=== PATIENT | female | born 1950 | race Caucasian/White ===

== ENCOUNTER 2022-02-15 11:45 | Inpatient (IN) | payer MEDICARE, OTHER ==
[~2022-02-15] VITALS: Ht 160 cm; Wt 44.3 kg
[2022-02-15 12:28] LABS: HEMOGLOBIN 16.7 gm/dl (12.3-15.3); RED BLOOD COUNT 4.95 M/UL (4.00-5.10); WHITE BLOOD COUNT 12.5 K/UL (4.5-11.0)
[2022-02-15 13:03] LABS: BUN/CREATININE RATIO 33 (0-10)
[2022-02-16 01:15] LABS: HEMOGLOBIN 15.1 gm/dl (12.3-15.3); RED BLOOD COUNT 4.54 M/UL (4.00-5.10); WHITE BLOOD COUNT 9.8 K/UL (4.5-11.0)
[2022-02-16 01:38] LABS: BUN/CREATININE RATIO 34 (0-10)
[2022-02-16] MEDS ORDERED: TRAZODONE HCL100 MG PO (10:52)
[2022-02-16] MEDS ORDERED: ADVAIR 250-501 EACH INH (10:52)
[2022-02-16] MEDS ORDERED: CLONAZEPAM1 MG PO (10:52)
[2022-02-16] MEDS ORDERED: MELOXICAM15 MG PO (10:53)
[2022-02-16] MEDS ORDERED: AMLODIPINE BES2.5 MG PO (10:54)
[2022-02-16] MEDS ORDERED: BACLOFEN10 MG PO (10:54)
[2022-02-16] MEDS ORDERED: LOSARTAN POTASS50 MG PO (10:55)
[2022-02-16] MEDS ORDERED: POTASSIUM CHLO10 ME1 PO (10:56)
[2022-02-16] MEDS ORDERED: PILOCARPINE HCL5 MG PO (10:56)
--- NOTE | 2022-02-16 17:33 | NUR ---
PER TELEMETRY PATIENT HAD A 6 BEAT RUN OF SVT. CALLED DR CHAVEZ AND INFORMED HIM SHE WAS NOT IN ANY DISTRESS. PATIENT WAS SITTING AT BEDSIDE EATING. WITH NO SHORTNESS OF BREATHE . I ALSO INFORMED HIM THAT THE PATIENT HAD NO REPORTS OF CHEST PAIN. DR CHAVEZ SAID NO NEW ORDERS. WILL CONTINUE TO MONITOR PATIENT.
[2022-02-17 02:37] LABS: HEMOGLOBIN 13.4 gm/dl (12.3-15.3)
[2022-02-17 02:38] LABS: RED BLOOD COUNT 4.03 M/UL (4.00-5.10); WHITE BLOOD COUNT 5.8 K/UL (4.5-11.0)
[2022-02-17 03:00] LABS: BUN/CREATININE RATIO 38 (0-10)
[2022-02-18 02:30] LABS: HEMOGLOBIN 13.1 gm/dl (12.3-15.3); RED BLOOD COUNT 4.02 M/UL (4.00-5.10); WHITE BLOOD COUNT 4.7 K/UL (4.5-11.0)
[2022-02-18 02:53] LABS: BUN/CREATININE RATIO 31 (0-10)
[2022-02-19 05:10] LABS: HEMOGLOBIN 13.8 gm/dl (12.3-15.3); RED BLOOD COUNT 4.19 M/UL (4.00-5.10)
[2022-02-19 05:15] LABS: WHITE BLOOD COUNT 6.7 K/UL (4.5-11.0)
[2022-02-19 05:31] LABS: BUN/CREATININE RATIO 24 (0-10)
[2022-02-19] MEDS ORDERED: TAB-A-VITE TA400 MC1 PO (14:27)
[2022-02-19] MEDS ORDERED: ATORVASTATIN CA20 MG PO (14:27)
[2022-02-19] MEDS ORDERED: CLOPIDOGREL75 MG PO (14:27)
[2022-02-19] MEDS ORDERED: VITAMIN B-1100 M1 PO (14:27)
[2022-02-19] MEDS ORDERED: COZAAR 50MG TAB50 MG PO (14:27)
[2022-02-19] MEDS ORDERED: METOPROLOL SUC100 MG PO (14:27)
[2022-02-19] MEDS ORDERED: ASPIRIN EC81 MG PO (14:27)
[2022-02-19] MEDS ORDERED: MACROBID 100 M100 M1 PO (14:47)
[2022-02-19] MEDS ORDERED: NITROGLYCERIN0.4 MG SL (14:47)
[2022-02-19] MEDS ORDERED: LASIX TAB 20 MG20 MG PO (14:54)
[2022-02-19] MEDS ORDERED: HYDRALAZINE HCL25 MG PO (14:54)
[2022-02-19] MEDS ORDERED: HYDRALAZINE HCL10 MG PO (14:59)
== END 2022-02-19 16:08 | disposition home or self-care (01) | DRG 247 ==
LOC: ER1 11:45 → CDU 18:35 → MED SURG 4 18:35 → PROG CARE 02-17 11:38
PROVIDERS: Emergency Medicine; Internal Medicine Cardiovascular Disease; ADMIT Internal Medicine
PROC: B24BZZZ Ultrasonography of Heart with Aorta (ICD-10-PCS; 2022-02-17)
PROC: 027034Z Dilation of Coronary Artery, One Artery with Drug-eluting Intraluminal Device, Percutaneous Approach (ICD-10-PCS; principal; 2022-02-18)
PROC: 4A023N7 Measurement of Cardiac Sampling and Pressure, Left Heart, Percutaneous Approach (ICD-10-PCS; 2022-02-18)
PROC: B2111ZZ Fluoroscopy of Multiple Coronary Arteries using Low Osmolar Contrast (ICD-10-PCS; 2022-02-18)
DX: I25.110 Atherosclerotic heart disease of native coronary artery with unstable angina pectoris (principal); N39.0 Urinary tract infection, site not specified; Z20.822 Contact with and (suspected) exposure to COVID-19; Z68.1 Body mass index [BMI] 19.9 or less, adult; E44.0 Moderate protein-calorie malnutrition; I25.5 Ischemic cardiomyopathy; F10.10 Alcohol abuse, uncomplicated; I10 Essential (primary) hypertension; G47.00 Insomnia, unspecified; G89.29 Other chronic pain; R29.6 Repeated falls; J44.9 Chronic obstructive pulmonary disease, unspecified; I44.7 Left bundle-branch block, unspecified; R11.2 Nausea with vomiting, unspecified; F41.1 Generalized anxiety disorder; G62.9 Polyneuropathy, unspecified; F17.210 Nicotine dependence, cigarettes, uncomplicated; R13.10 Dysphagia, unspecified; M54.9 Dorsalgia, unspecified; R26.9 Unspecified abnormalities of gait and mobility; E87.6 Hypokalemia; Z79.01 Long term (current) use of anticoagulants; Z79.82 Long term (current) use of aspirin; Z90.49 Acquired absence of other specified parts of digestive tract; Z90.710 Acquired absence of both cervix and uterus
CPT/HCPCS: ECHO; 36415; 71045; 78452; 80053; 80061; 81001; 82550; 82553; 82607; 83036; 83605; 83690; 83735; 83880; 84100; 84132; 84439; 84443; 84484; 85025; 85347; 85379; 93005; 93306; 94640; 94760; 96372; 96374; 96375; 97161; 97165; 97530; 99152; 99153; 99285; A9502; C1725; C1769; C1874; C1887; C1894; C9600; G0378; J0461; J0696; J1630; J1644; J1650; J2060; J2250; J2370; J2405; J2785; J3010; J3246; J3411; J3475; J3480; J7040; Q9967

== ENCOUNTER 2022-04-09 20:32 | Emergency (ER) | payer MEDICARE ==
[~2022-04-09 20:32] MED LIST: ADVAIR 250-501 EACH INH; AMLODIPINE BES2.5 MG PO; ASPIRIN EC81 MG PO; ATORVASTATIN CA20 MG PO; BACLOFEN10 MG PO; CLONAZEPAM1 MG PO; CLOPIDOGREL75 MG PO; COZAAR 50MG TAB50 MG PO; HYDRALAZINE HCL10 MG PO; HYDRALAZINE HCL25 MG PO; LASIX TAB 20 MG20 MG PO; LOSARTAN POTASS50 MG PO; MACROBID 100 M100 M1 PO; MELOXICAM15 MG PO; METOPROLOL SUC100 MG PO; NITROGLYCERIN0.4 MG SL; PILOCARPINE HCL5 MG PO; POTASSIUM CHLO10 ME1 PO; TAB-A-VITE TA400 MC1 PO; TRAZODONE HCL100 MG PO; VITAMIN B-1100 M1 PO
[2022-04-09 22:00] LABS: WHITE BLOOD COUNT 15.1 K/UL (4.5-11.0)
[2022-04-09 22:06] LABS: HEMOGLOBIN 6.7 gm/dl (12.3-15.3)
[2022-04-09 23:29] LABS: BUN/CREATININE RATIO 43 (0-10)
[2022-04-10 20:52] LABS: CANDIDA ALBICANS Not Detected (Negative); CANDIDA KRUSEI Not Detected (Negative); CANDIDA TROPICALIS Not Detected (Negative); ESCHERICHIA COLI Not Detected (Negative); HAEMOPHILUS INFLUENZAE Not Detected (Negative); KLEBSIELLA OXYTOCA Not Detected (Negative); KLEBSIELLA PNEUMONIAE Not Detected (Negative); KPC-CARBAPENEM-RESISTANCE GENE Not Detected (Negative); PROTEUS Not Detected (Negative); PSEUDOMONAS AERUGINOSA Not Detected (Negative); SERRATIA MARCESANS Not Detected (Negative); STAPHYLOCOCCUS AUREUS Not Detected (Negative); STREP AGALACTIAE (GROUP B) Not Detected (Negative); STREP PYOGENES (GROUP A) Not Detected (Negative); STREPTOCOCCUS Not Detected (Negative); vanA/B (VANCOMYCIN RESIST GENE Not Detected (Negative)
[2022-04-10 22:17] LABS: STAPHYLOCOCCUS DETECTED (Negative)
== END 2022-04-10 03:45 | disposition short-term general hospital (02) ==
LOC: ER1 20:32
PROVIDERS: Emergency Medicine
DX: K92.2 Gastrointestinal hemorrhage, unspecified (principal); D72.829 Elevated white blood cell count, unspecified; E87.2 Acidosis; I48.91 Unspecified atrial fibrillation; Z20.822 Contact with and (suspected) exposure to COVID-19
CPT/HCPCS: 0241U; 36430; 36600; 71045; 71250; 80053; 82550; 82553; 82803; 83605; 84484; 85025; 85610; 85730; 86850; 86900; 86901; 86920; 87040; 87150; 93005; 96361; 96374; 96375; 99285; C9113; G0480; J2543; P9016